=== PATIENT | female | born 1975 | race Two or more races ===

== ENCOUNTER 2025-03-29 19:04 | Emergency (ER) | payer MEDICAID, SELFPAY ==
[2025-03-29 19:04] VITALS: BMI 50.8
[2025-03-29 19:18] VITALS: BP 147/94; PULSE 114; RESP 20; TEMP 37.7; O2SAT 99
--- NOTE | 2025-03-29 19:41 | EDNOTE_ITS ---
ED Abdominal Pain RME/HPI General Chief Complaint: Abdominal Pain Stated complaint: MID ABDOMINAL PAIN Time seen by provider: 03/29/25 19:40 Arrival date/time: 03/29/25 19:04 RME / HPI RME / HPI narrative: This section includes all my notes and documentations, including HPI, PE, and ED course. Fred Menjivar MD HPI: 50 y/o female presents with abdominal pain for several days, worse today. She reports diffuse abdominal pain, including in the pelvic region. She reports a vaginal discharge with foul smell. No flank pain. No fever. No vomiting. No other complaints. ROS: All negative except as documented in HPI. Physical Exam: General: Alert and oriented. Appears uncomfortable. Eyes: Conjunctivae and lids clear. ENT: No nasal congestion. Neck: Supple. Heart: RRR. Lungs: No respiratory distress. Good air movement. No rhonchi, wheezing, rales. Abdomen: Soft with diffuse tenderness, difficult to localize. Normal bowel sounds. No distension. No rebound or guarding. Back: No CVA tenderness. Skin: Warm and dry. Neuro: Alert and oriented X 3. I reviewed all diagnostic test results: My review of the CT report is: 25 mm umbilical hernia containing incarcerated fat. My review of the US report is: Complex fluid in the cul-de-sac, consider pelvic inflammatory disease. Blood tests and urine tests remarkable for WBC 13.4. At this point, diagnoses include: Pelvic infection, Umbilical hernia Treatment here included: Tylenol w/ Codeine, Zofran, Rocephin, Flagyl, Zithromax. Recommended more outpatient workup. Based on my best medical judgment, made decision no further evaluation or treatment indicated at this time. Patient understands and agrees to the discharge instructions customized and printed, see below. Discharge Instructions from Dr. Menjivar printed for you: 1. After evaluation, you have umbilical hernia. See attached handout. 2. But there is no emergency because only fat tissues (and no intestines) are outside the abdomen. 3. Avoid increasing intra-abdominal pressure. Such as when lifting heavy objects and pushing too hard during bowel movements. 4. Tylenol with codeine for severe pain. 5. For your pelvic infection, you were treated here for all common causes of the infection. 6. No sexual activity until cleared by a doctor taking care of you. 7. See a private doctor on 03/31/2025 for recheck and further care. Ask to review all test results and official radiology reports, to make sure you receive all necessary follow-ups and monitoring. Ask for a referral to see a surgeon to discuss elective surgery of your umbilical hernia. 8. Seek immediate medical care with worsening or with any concerns. Fred Menjivar MD Related Data Home Medications ?Medication ?Instructions ?Recorded ?Confirmed hydrochlorothiazide 25 mg tablet 12.5 mg PO QAM #0 tab s 10/16/14 lisinopril 10 mg tablet 10 mg PO QDAY #0 tabs albuterol sulfate 90 mcg/actuation 2 puff inhalation Q 6HR PRN 02/05/16 aerosol inhaler (ProAir HFA) SHORTNESS OF BREATH #0 in halations Previous Rx's ?Medication ?Instructions ?Recorded acetaminophen 300 mg-codeine 30 mg 2 tab PO Q8H PRN pa in #20 tabs 03/29/25 tablet Allergies Allergy/AdvReac Type Severity Reaction Status Date / Time NKA* Allergy Uncoded 02/05/16 14:11 Review of Systems Review of Systems Systems Reviewed: All systems reviewed, normal except as documented Past Medical History Social History SMOKING STATUS: Never smoker ED Exam Narrative Physical exam: Refer to [facility] Course Quality Measures none Orders Category Date Time Status CT abdomen pelvis wo con Stat Exams 03/29/25 19:45 Completed US transvaginal Stat Exams 03/29/25 19:45 Completed Amylase Stat Lab 03/29/25 20:25 Completed Bilirubin,Direct Stat Lab 03/29/25 20:25 Completed CBC Stat Lab 03/29/25 20:25 Completed CMP [Comprehensive Metabolic Panel] Stat Lab 03/29/25 20:25 Completed HCG Qualitative,Urine Stat Lab 03/29/25 20:05 Completed HCG,Qualitative Serum Stat Lab 03/29/25 20:25 Completed Lipase Stat Lab 03/29/25 20:25 Completed Magnesium Stat Lab 03/29/25 20:25 Completed UA, C/S IF [Urinalysis, C/S if Indicated] Stat Lab 03/29/25 20:05 Completed ACETAMINOPHEN w/COD 300-30 [Tylenol w/Cod #3] Med 03/29/25 19:44 Discontinued 2 tab PO X1 ONE Azithromycin Po [Zithromax PO] Med 03/29/25 21:31 Discontinued 1,000 mg PO X1 ONE Fluconazole [Diflucan] Med 03/29/25 21:31 Discontinued 200 mg PO X1 ONE Ondansetron Odt [Zofran Odt] Med 03/29/25 19:44 Discontinued 4 mg PO X1 ONE cefTRIAXone [Rocephin] 1,000 mg Med 03/29/25 21:31 Discontinued Lidocaine 1% 20 ml [Xylocaine 1% 20 ML] 2.1 ml IM X1 metroNIDAZOLE [Flagyl] Med 03/29/25 21:31 Discontinued 2,000 mg PO X1 ONE Vital Signs Vital signs: Vital Signs Temperature 99.8 F 03/29/25 19:18 Pulse Rate 114 H 03/29/25 19:18 Respiratory Rate 20 03/29/25 19:18 Blood Pressure 147/94 H 03/29/25 19:18 Pulse Oximetry (%) 99 03/29/25 19:18 Oxygen Delivery Method Room Air 03/29/25 19:18 Abdominal Pain MDM MDM Narrative MDM Narrative:: Scribe Attestation: IEmily, am scribing for and in the presence of Dr. Menjivar. Provider Notation: Although this document has been carefully reviewed, there may still be some phonetic and other typographical errors.? These errors are purely grammatical due to imperfections in the software program and should not be construed in any way to? compromise the substance of the patient's medical care during this visit. 50 y/o female presents with lower abdominal pain x 3 hours. Denies nausea, vomiting, fever, and dysuria. Patient has had her gall bladder removed, but still has her appendix. Patient is currently on her menstrual cycle. No other complaints. Patient data External records reviewed:: [facility] previous records (No prior ED records available for review.) Clinical information provided by:: patient Social determinants that could affect healthcare access:: none Patient has the following chronic illnesses:: None reported How is presenting disease/condition affected by chronic disease/condition?: no chronic disease Evaluation data The following diagnostics were reviewed and interpreted by me:: lab results and radiology exam(s) Lab and/or radiology exams considered but not ordered:: None Interpretation Summary: I reviewed all diagnostic test results: My review of the CT report is: 25 mm umbilical hernia containing incarcerated fat. My review of the US report is: Complex fluid in the cul-de-sac, consider pelvic inflammatory disease. Blood tests and urine tests remarkable for WBC 13.4. Medications / Prescriptions Medications or Prescriptions considered but not ordered:: None Medication administrations:: Medication Administration History Discontinued Medications Acetaminophen/Codeine Phosphate (Acetaminophen W/Cod 300-30 Tablet) 2 tab PO X1 ONE Stop: 03/29/25 19:45 Last Admin: 03/29/25 22:02 Dose: 2 tab Documented By: BD Azithromycin (Azithromycin 250 Mg Tablet) 1,000 mg PO X1 ONE Stop: 03/29/25 21:32 Last Admin: 03/29/25 22:00 Dose: 1,000 mg Documented By: BD Ceftriaxone Sodium 1,000 mg/ (Lidocaine HCl 2.1 ml) 0 mg IM X1 ONE Stop: 03/29/25 21:32 Last Admin: 03/29/25 21:59 Dose: 1,000 mg Documented By: BD Fluconazole (Fluconazole 100 Mg Tablet) 200 mg PO X1 ONE Stop: 03/29/25 21:32 Metronidazole (Metronidazole 250 Mg Tablet) 2,000 mg PO X1 ONE Stop: 03/29/25 21:32 Ondansetron HCl (Ondansetron Odt 4 Mg Tabrap) 4 mg PO X1 ONE; Protocol Stop: 03/29/25 19:45 Last Admin: 03/29/25 22:00 Dose: 4 mg Documented By: BD Tylenol w/ Codeine, Zofran, Rocephin, Flagyl, Zithromax. Consultations Consultation(s) initiated? (list below): No Diagnosis Differential diagnosis abdominal pain: abdominal pain, acute appendicitis, calculus of kidney, constipation, diverticulitis, endometriosis, gastroenteritis, pancreatitis and small bowel obstruction Most likely diagnosis given after review of the tests above:: Pelvic infection, Umbilical hernia Admission Indicated Admission indicated?: not indicated Explain why admission is indicated or not indicated:: With no severe illness, there was no indication for admission. Admission Request Was there a request for admission?: No Disposition Plan Disposition Plan: Discharge Discharge Attestation Discharge Attestation: The patient and all family members were given an opportunity to ask questions and understood the discharge instructions. Discharge instructions specifically effects, indications for sooner follow up or return to the emergency department, and the expected course of current diagnosis. Patient condition: Stable Discharge Plan Plan Patient Disposition: HOME (Self Care) Prescriptions/Referrals Prescriptions/Med Rec: New acetaminophen-codeine 300-30 mg tablet 2 tab PO Q8H MDD 6 PRN (Reason: pain) Qty: 20 0RF No Action hydrochlorothiazide 25 MG tablet 12.5 mg PO QAM Qty: 0 lisinopril 10 MG tablet 10 mg PO QDAY Qty: 0 albuterol sulfate [ProAir HFA] 8.5 GM HFA aerosol inhaler 2 puff Inhalation Q6HR PRN (Reason: SHORTNESS OF BREATH) Qty: 0 Referrals: Sylwia Lock PA-C [Primary Care Provider] - In 1 week Problem List Clinical Impression: Umbilical hernia, Pelvic infection Patient/Caregiver Discharge Instructions Discharge Activity: activity as tolerated Education Materials: ED Hernia (Adult), ED Pelvic Inflammatory Disease Additional Instructions: Discharge Instructions from Dr. Menjivar printed for you: 1. After evaluation, you have umbilical hernia. See attached handout. 2. But there is no emergency because only fat tissues (and no intestines) are outside the abdomen. 3. Avoid increasing intra-abdominal pressure. Such as when lifting heavy objects and pushing too hard during bowel movements. 4. Tylenol with codeine for severe pain. 5. For your pelvic infection, you were treated here for all common causes of the infection. 6. No sexual activity until cleared by a doctor taking care of you. 7. See a private doctor on 03/31/2025 for recheck and further care. Ask to review all test results and official radiology reports, to make sure you receive all necessary follow-ups and monitoring. Ask for a referral to see a surgeon to discuss elective surgery of your umbilical hernia. 8. Seek immediate medical care with worsening or with any concerns. Print Language: Zambian Stand Alone Forms: [employer]bil Award Info., Patient Portal Info Letter
--- NOTE | 2025-03-29 19:45 | XR_ITS ---
Examination: Transvaginal ultrasound of the pelvis, complete Technique: Transvaginal sonographic images pelvis performed using joshua scale imaging Exam date and time: March 29, 2025 2040 hours INDICATIONS: Onset pelvic pain beginning this morning FINDINGS: Uterus 10.0 cm No uterine mass or intrauterine gestation Endometrial stripe 0.8 cm Ovaries are obscured by bowel gas Complex fluid in the cul-de-sac IMPRESSION: Complex fluid in the cul-de-sac, consider pelvic inflammatory disease
--- NOTE | 2025-03-29 19:45 | XR_ITS ---
Examination: CT abdomen and pelvis without contrast. Coronal 3-D reconstructions. Sagittal 2-D reconstructions. Date and time of exam:March 29, 20252053 hours COMPARISON: October 16, 2024 INDICATIONS: Generalized abdominal pain today CTDI: vol (mGy): 19 DLP: (mGycm): 1158 Technique: Axial images of the abdomen have been obtained, 3 mm slice thickness Intravenous contrast material has not been administered. Low dose protocols were performed. One or more of the following dose reduction techniques were used; automated exposure control, adjustment of the mA and/or KV according to patient size, use of iterative reconstruction technique. Findings: Splenic lesion Absent gallbladder No pancreatic mass No renal or ureteral calculi No hydronephrosis Normal appendix 25 mm umbilical hernia containing incarcerated fat Colonic diverticulosis, no diverticulitis Anteverted uterus Contracted urinary bladder Moderate osteopenia IMPRESSION: 25 mm umbilical hernia containing incarcerated fat No renal or ureteral calculi, no hydronephrosis Normal appendix No bowel obstruction diverticulitis or free air
[2025-03-29 20:18] LABS: Collection Type, Urine Clean Catch
[2025-03-29 20:22] LABS: HCG Qualitative,Urine Negative
[2025-03-29 20:26] LABS: Bacteria,Urine Rare; Bilirubin,Urine Negative (Negative); Blood,Urine 3+ (Negative); Clarity,Urine Clear (Clear/Hazy); Color,Urine Lt-Yellow (Lt Yel-Yel); Culture Indicated,Urine Contaminated; Glucose, Urine 4+ (Negative); Ketones,Urine 3+ (Negative); Leukocyte Esterase,Urine Positive (Negative); Nitrite,Urine Negative (Negative); Protein,Urine Negative (Neg - Trace); RBC,Urine 53 /hpf (0-3); Specific Gravity,Urine 1.027 (1.001-1.035); Squamous Epithelial Cell,Urine 28 /hpf (0-5); Urobilinogen,Urine Negative mg/dL (0.0-1.0); WBC,Urine 15 /hpf (0-5)
[2025-03-29 20:38] LABS: Basophils % (Auto) 0 % (0-2.5); Eosinophils % (Auto) 0 % (0-10); Hematocrit 41.5 % (36.0-46.0); Hemoglobin 14.1 g/dL (12.0-16.0); Immature Granulocytes % (Auto) 0 % (0-0); Immature Granulocytes Auto 0.05 Thou/mm3 (0.00-0.00); Lymphocytes # (Auto) 1.5 Thou/mm3 (1.0-4.8); Lymphocytes % (Auto) 11 % (10-50); Mean Corpuscular Hemoglobin 25.9 pg (25.0-35.0); Mean Corpuscular Volume 76 fL (80-100); Monocytes # (Auto) 0.7 Thou/mm3 (0.0-0.8); Monocytes % (Auto) 5 % (0-12); Neutrophils # (Auto) 11.1 Thou/mm3 (1.8-7.7); Neutrophils % (Auto) 83 % (37-80); Nucleated Red Blood Cell % 0 /100 WBC (0); Platelet Count 280 Thou/mm3 (140-440); RDW Standard Deviation 34.5 fL (36.4-46.3); Red Blood Count 5.45 Miln/mm3 (4.00-5.20); White Blood Count 13.4 Thou/mm3 (3.6-11.0)
[2025-03-29 21:27] LABS: Alanine Aminotransferase 11 U/L (10-49); Albumin, Serum 4.4 gm/dL (3.5-5.0); Albumin/Globulin Ratio 1.7 (1.2-2.2); Alkaline Phosphatase 125 U/L (46-116); Amylase 73 U/L (30-118); Anion Gap 13 (7-16); BUN/Creatinine Ratio 16 Ratio (12-20); Bilirubin,Direct < 0.1 mg/dL (0.0-0.3); Bilirubin,Total 0.3 mg/dL (0.3-1.2); Blood Urea Nitrogen 11 mg/dL (9-23); Calcium 9.1 mg/dL (8.3-10.6); Calcium (Corrected) 9.1 mg/dL (8.5-10.1); Carbon Dioxide 23.7 mMol/L (20.0-31.0); Chloride 100 mMol/L (98-107); Creatinine (Component) 0.7 mg/dL (0.6-1.3); Estimated Creatinine Clearance 115.6 mL/min (>60); Globulin 2.6 gm/dL (2.3-3.5); Glucose 274 mg/dL (74-106); Lipase 37 U/L (12-53); Magnesium 1.6 mg/dL (1.6-2.6); Osmolality,Calculated 283 (275-295); Potassium 3.4 mMol/L (3.4-5.1); Sodium 137 mMol/L (136-145); eGFR > 60 See Note
[2025-03-29 21:51] LABS: HCG,Qualitative Serum Negative
--- NOTE | 2025-03-29 21:53 | PC.NURSE ---
CALLED HOUSE [facility] FOR FLAGYL AND DIFLUCAN
[2025-03-29] MEDS: cefTRIAXone 1,000 MG, LIDOCAINE 1% 20 ML 2.1 ML IM (21:59)
[2025-03-29] MEDS: ONDANSETRON ODT 4 MG TABRAP PO (22:00)
[2025-03-29] MEDS: AZITHROMYCIN 250 MG TABLET 1000 MG PO (22:00)
[2025-03-29] MEDS: ACETAMINOPHEN w/COD 300-30 TABLET 2 TAB PO (22:02)
[2025-03-29] MEDS: metroNIDAZOLE 250 MG TABLET 2000 MG PO (22:08)
[2025-03-29] MEDS: FLUCONAZOLE 100 MG TABLET 200 MG PO (22:09)
== END 2025-03-29 22:12 | disposition home or self-care (01) ==
PROVIDERS: Emergency Provider Emergency Medicine; PCP Physician Assistant
DX: K42.9 Umbilical hernia without obstruction or gangrene (principal); N73.9 Female pelvic inflammatory disease, unspecified
CPT/HCPCS: 36415; 74176; 76830; 80053; 81001; 81025; 82150; 82248; 83690; 83735; 84703; 85025; 96372; 99284; J0696; J3490; Q0162; A9270